=== PATIENT | female | born 1970 | race Caucasian/White ===

== ENCOUNTER 2019-07-08 14:09 | Emergency (ER) | payer MEDICARE, OTHER ==
[~2019-07-08] VITALS: Ht 150 cm; Wt 77.1 kg
[2019-07-08 16:21] LABS: BILIRUBIN,URINE NEGATIVE (NEGATIVE); CLARITY,URINE SL CLOUDY; COLOR,URINE YELLOW; GLUCOSE, URINE (UA) NEGATIVE (NEGATIVE); KETONES,URINE NEGATIVE (NEGATIVE); LEUKOCYTE ESTERASE ,URINE NEGATIVE (NEGATIVE); NITRITE,URINE NEGATIVE (NEGATIVE); PH,URINE 7.5 (5-9); PROTEIN,URINE NEGATIVE (NEGATIVE)
[2019-07-08] MEDS ORDERED: LACTATED RINGERS 1,000 ML IV ONE (16:30)
[2019-07-08] MEDS ORDERED: ONDANSETRON 4 MG/2 ML (SDV) Z0FRAN IVP ONE (16:30)
[2019-07-08] MEDS ORDERED: KETOROLAC 30 MG/ML VIAL IVP ONE (16:30)
[2019-07-08 16:35] LABS: BACTERIA,URINE TRACE /HPF; SQUAMOUS EPITHELIAL CELL,UR 0-2 /HPF
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
[2019-07-08 16:42] LABS: AMPHETAMINE SCREEN, URINE POSITIVE (NEGATIVE); BARBITURATE SCREEN URINE NEGATIVE (NEGATIVE); BENZODIAZEPINES SCREEN URINE POSITIVE (NEGATIVE); CANNABINOID SCREEN, URINE POSITIVE (NEGATIVE); COCAINE SCREEN URINE NEGATIVE (NEGATIVE); METHADONE STAT NEGATIVE (NEGATIVE); METHAMPHETAMINE SCREEN URINE S NEGATIVE (NEGATIVE); OPIATE SCREEN URINE NEGATIVE (NEGATIVE); OXYCODONE STAT NEGATIVE (NEGATIVE); PROPOXYPHENE STAT NEGATIVE (NEGATIVE); TRICYCLIC ANTIDEPRESSANTS SCRE NEGATIVE (NEGATIVE)
[2019-07-08 17:13] LABS: BASOPHILS % (AUTO) 0 % (0-10); EOSINOPHILS # (AUTO) 0.1 10^3/uL (0.0-0.3); EOSINOPHILS % (AUTO) 1 % (0-10); HEMATOCRIT 47 % (35-52); HEMOGLOBIN 15.5 G/DL (11.5-16.0); LYMPHOCYTES # (AUTO) 1.9 X 10^3 (1.0-4.0); LYMPHOCYTES % (AUTO) 18 % (12-44); MEAN CORPUSCULAR HEMOGLOBIN 28 PG (25-34); MEAN CORPUSCULAR HGB CONC 33 G/DL (32-36); MEAN CORPUSCULAR VOLUME 86 FL (80-99); MEAN PLATELET VOLUME 9.3 FL (7.4-10.4); MONOCYTES # (AUTO) 0.5 X 10^3 (0.0-1.0); MONOCYTES % (AUTO) 5 % (0-12); NEUTROPHILS # (AUTO) 7.9 X 10^3 (1.8-7.8); NEUTROPHILS % (AUTO) 76 % (42-75); PLATELET COUNT 407 10^3/uL (130-400); RED CELL DISTRIBUTION WIDTH 13.1 % (10.0-14.5); WHITE BLOOD COUNT 10.5 10^3/uL (4.3-11.0)
[2019-07-08 17:35] LABS: ALANINE AMINOTRANSFERASE 12 U/L (0-55); ALBUMIN 4.1 GM/DL (3.2-4.5); ALKALINE PHOSPHATASE 103 U/L (40-136); BILIRUBIN,TOTAL 0.3 MG/DL (0.1-1.0); BUN/CREATININE RATIO 14; CALCIUM 9.3 MG/DL (8.5-10.1); CARBON DIOXIDE 20 MMOL/L (21-32); CHLORIDE 105 MMOL/L (98-107); CREATININE SERUM 0.72 MG/DL (0.60-1.30); GFR ESTIMATED > 60; GLUCOSE 99 MG/DL (70-105); POTASSIUM 4.2 MMOL/L (3.6-5.0); SODIUM 136 MMOL/L (135-145); TOTAL PROTEIN 7.2 GM/DL (6.4-8.2)
--- NOTE | 2019-07-08 17:42 | Diagnostic Imaging Report ---
INDICATION: Right-sided flank pain. TECHNIQUE: Multiple contiguous axial images were obtained through the abdomen and pelvis without the use of intravenous contrast. Auto Exposure Controls were utilized during the CT exam to meet ALARA standards for radiation dose reduction. COMPARISON: There is no prior study for comparison. FINDINGS: The visualized portions of the lung bases are clear. There is no pleural fluid collection. There is no free intraperitoneal air. The liver shows no focal lesion. Gallbladder is absent. The spleen, adrenals, and pancreas are normal. The kidneys bilaterally show no radiopaque calculi. There is a questionable tiny cyst in the right kidney. There is no ureteral stone or hydronephrosis. Urinary bladder appears grossly unremarkable. There is no pelvic mass or free fluid. Visualized bowel loops show no overt bowel wall thickening or obstruction. The appendix appears unremarkable. IMPRESSION: Status post cholecystectomy. Probable small cyst in the right kidney. No urinary tract stone or hydronephrosis. Normal-appearing appendix. Dictated by: Dictated on workstation # [id number]
[2019-07-08] MEDS ORDERED: NAPR-1071 PO (18:26)
[2019-07-08] MEDS ORDERED: CYCL10TA9 PO (18:26)
[2019-07-08] MEDS ORDERED: ACETAMINOPHEN 500 MG TAB (TYLENOL) PO ONE (18:30)
[2019-07-08 18:44] VITALS: BP 140/93
[2019-07-08] MEDS ORDERED: ORPHENADRINE 60 MG/2 ML (NORFLEX) AMP IV ONE (18:45)
== END 2019-07-08 18:44 | disposition home or self-care (01) ==
LOC: EDUNIT# 14:09 → ER 14:11
DX: M54.5 Low back pain (principal); I10 Essential (primary) hypertension; F17.210 Nicotine dependence, cigarettes, uncomplicated
CPT/HCPCS: 36415; 74176; 80053; 80306; 81000; 84703; 85025; 96361; 96374; 96375

== ENCOUNTER 2019-07-10 13:55 | Emergency (ER) | payer MEDICARE ==
[~2019-07-10] VITALS: Ht 149.8 cm; Wt 78.0 kg
[~2019-07-10 13:55] MED LIST: CYCL10TA9 PO; NAPR-1071 PO
[2019-07-10 14:20] LABS: BILIRUBIN,URINE NEGATIVE (NEGATIVE); CLARITY,URINE TURBID; COLOR,URINE YELLOW; GLUCOSE, URINE (UA) NEGATIVE (NEGATIVE); KETONES,URINE NEGATIVE (NEGATIVE); LEUKOCYTE ESTERASE ,URINE NEGATIVE (NEGATIVE); NITRITE,URINE NEGATIVE (NEGATIVE); PH,URINE 7.5 (5-9); PROTEIN,URINE NEGATIVE (NEGATIVE)
[2019-07-10 14:32] LABS: AMORPHOUS SEDIMENT,UR LARGE AMOR PHOSPHATE /LPF; BACTERIA,URINE NEGATIVE /HPF; SQUAMOUS EPITHELIAL CELL,UR RARE /HPF
[2019-07-10 14:34] LABS: BENZODIAZEPINES SCREEN URINE POSITIVE (NEGATIVE); COCAINE SCREEN URINE NEGATIVE (NEGATIVE)
[2019-07-10 14:35] LABS: AMPHETAMINE SCREEN, URINE POSITIVE (NEGATIVE); BARBITURATE SCREEN URINE NEGATIVE (NEGATIVE); CANNABINOID SCREEN, URINE POSITIVE (NEGATIVE); METHADONE STAT NEGATIVE (NEGATIVE); METHAMPHETAMINE SCREEN URINE S NEGATIVE (NEGATIVE); OPIATE SCREEN URINE NEGATIVE (NEGATIVE); OXYCODONE STAT NEGATIVE (NEGATIVE); PROPOXYPHENE STAT NEGATIVE (NEGATIVE); TRICYCLIC ANTIDEPRESSANTS SCRE NEGATIVE (NEGATIVE)
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
[2019-07-10] MEDS ORDERED: KETOROLAC 30 MG/ML VIAL ONE (15:08)
[2019-07-10] MEDS ORDERED: KETOROLAC 60 MG/2 ML VIAL IM ONE (15:15)
[2019-07-10] MEDS ORDERED: KETOROLAC 30 MG/ML VIAL IVP ONE (15:15)
[2019-07-10] MEDS ORDERED: OLANZapine 5 MG ODT (ZyPREXA ZYDIS) PO ONE (15:15)
[2019-07-10 15:28] LABS: BASOPHILS % (AUTO) 0 % (0-10); EOSINOPHILS # (AUTO) 0.3 10^3/uL (0.0-0.3); EOSINOPHILS % (AUTO) 3 % (0-10); HEMATOCRIT 43 % (35-52); HEMOGLOBIN 14.4 G/DL (11.5-16.0); LYMPHOCYTES # (AUTO) 2.2 X 10^3 (1.0-4.0); LYMPHOCYTES % (AUTO) 19 % (12-44); MEAN CORPUSCULAR HEMOGLOBIN 29 PG (25-34); MEAN CORPUSCULAR HGB CONC 34 G/DL (32-36); MEAN CORPUSCULAR VOLUME 86 FL (80-99); MEAN PLATELET VOLUME 9.2 FL (7.4-10.4); MONOCYTES # (AUTO) 0.6 X 10^3 (0.0-1.0); MONOCYTES % (AUTO) 6 % (0-12); NEUTROPHILS # (AUTO) 8.1 X 10^3 (1.8-7.8); NEUTROPHILS % (AUTO) 72 % (42-75); PLATELET COUNT 340 10^3/uL (130-400); WHITE BLOOD COUNT 11.3 10^3/uL (4.3-11.0)
[2019-07-10 15:51] LABS: ALANINE AMINOTRANSFERASE 14 U/L (0-55); ALKALINE PHOSPHATASE 100 U/L (40-136); BILIRUBIN,TOTAL 0.2 MG/DL (0.1-1.0); BUN/CREATININE RATIO 18; CALCIUM 9.2 MG/DL (8.5-10.1); CARBON DIOXIDE 24 MMOL/L (21-32); CHLORIDE 106 MMOL/L (98-107); CREATININE SERUM 0.67 MG/DL (0.60-1.30); GFR ESTIMATED > 60; GLUCOSE 93 MG/DL (70-105); LIPASE 33 U/L (8-78); POTASSIUM 4.1 MMOL/L (3.6-5.0); SODIUM 139 MMOL/L (135-145); TOTAL PROTEIN 6.9 GM/DL (6.4-8.2)
--- NOTE | 2019-07-10 16:53 | Diagnostic Imaging Report ---
PROCEDURE: CT abdomen and pelvis without contrast. TECHNIQUE: Multiple contiguous axial images were obtained through the abdomen and pelvis without the use of intravenous contrast. Auto Exposure Controls were utilized during the CT exam to meet ALARA standards for radiation dose reduction. INDICATION: Back pain. COMPARISON: 07/08/2019 FINDINGS: Lung bases are clear. The gallbladder is surgically absent. Compared to the previous examination, the bilateral renal pelves are slightly more prominent left greater than right. This may be seen with urinary tract infection. Please correlate clinically. There is no overt hydronephrosis or obstructive stone. There is no abscess. Liver, spleen, pancreas, adrenal glands, vascular structures and small bowel are normal. The appendix is unremarkable. There is some mild constipation. There is no free air or free fluid. The uterus is surgically absent. Distal ureters and urinary bladder are normal. There are phleboliths seen within the pelvis. Mild degenerative changes are seen in the disc spaces at the L4-L5 and L5-S1 level. Facet and ligamentum flavum hypertrophy is present. IMPRESSION: 1. Nonspecific slight dilation of the bilateral renal pelves left greater than right. Please correlate with urinalysis to exclude urinary tract infection. No renal calculi or overt hydronephrosis is seen. 2. Mild constipation. 3. Degenerative changes at L4-L5 and L5-S1. 4. Surgically absent gallbladder and uterus. Dictated by: Dictated on workstation # [id number]
[2019-07-10] MEDS ORDERED: OLAN10TA4 PO (16:57)
[2019-07-10] MEDS ORDERED: ALPRAZolam 1 MG (XANAX) TAB PO ONE (17:15)
[2019-07-10] MEDS ORDERED: LORazepam INJ 2 MG/ML (ATIVAN) VIAL IVP ONE (17:15)
[2019-07-10] MEDS ORDERED: ALPRAZolam 0.5 MG (XANAX) TAB PO PRN (18:00)
[2019-07-10 21:20] LABS: SALICYLATE < 5.0 MG/DL (5.0-20.0)
[2019-07-10 21:52] LABS: ACETAMINOPHEN < 10 UG/ML (10-30)
--- NOTE | 2019-07-10 23:00 | NUR ---
MERISSA GOODMAN NOTIFIED OF NEED OF TRANSPORT BY Volodymyr LOVE APRN AND STATES HE WILL NOT BE AVAILABLE UNTIL TOMORROW MORNING AT 0630.
--- NOTE | 2019-07-10 23:10 | NUR ---
REPORT TO KENDRA LIMA AT [facility]. NOTIFIED THAT [facility] UNABLE TO TRANSFER UNTIL TOMORROW MORNING.
--- NOTE | 2019-07-10 23:30 | NUR ---
TRANSFERED TO ROOM 8 WITH ALL BELONGINGS. ROOM SUICIDAL PRECAUTIONS UTILIZED, BELONGINGS BEHIND LOCKED DOOR.
--- NOTE | 2019-07-10 23:50 | NUR ---
Pt snoring deeply. Checked O2 sat at this time: 97% on RA
--- NOTE | 2019-07-11 01:00 | NUR ---
RESTING QUIETLY IN BED WITH EYES CLOSED. NO S/SX DISTRESS NOTED.
--- NOTE | 2019-07-11 02:35 | NUR ---
RESTING QUIETLY IN BED WITH EYES CLOSED. NO S/SX DISTRESS NOTED. SELF TURNS.
--- NOTE | 2019-07-11 04:05 | NUR ---
RESTING QUIETLY IN BED WITH EYES CLOSED. NO S/SX DISTRESS NOTED. SELF TURNS.
--- NOTE | 2019-07-11 06:00 | NUR ---
RESTING QUIETLY IN BED WITH EYES CLOSED. NO S/SX DISTRESS NOTED. SELF TURNS.
--- NOTE | 2019-07-11 06:22 | NUR ---
[facility] here for pt transport to [facility].
[2019-07-11 06:26] VITALS: BP 142/109
--- NOTE | 2019-07-11 06:37 | NUR ---
KENDRA PAZ NOTIFIED PT EN ROUTE TO [facility] VIA [facility].
== END 2019-07-11 06:26 ==
LOC: EDUNIT# 13:55 → ER 13:56
DX: R45.851 Suicidal ideations (principal); F41.9 Anxiety disorder, unspecified; R10.30 Lower abdominal pain, unspecified; I10 Essential (primary) hypertension; F17.210 Nicotine dependence, cigarettes, uncomplicated; Z59.0 Homelessness
CPT/HCPCS: 36415; 74176; 80053; 80306; 80320; 80329; 81000; 83690; 84703; 85025; 93005